=== PATIENT | male | born 1950 | race Caucasian/White ===

== ENCOUNTER → 2020-04-08 | Outpatient (CLI) | payer MEDICARE ==
--- NOTE | 2020-04-08 12:43 | KCIC ---
LUMBAR SPINE WO CONTRAST History: Reason: DDD/LUMBAR BACK PAIN AFFECTING RLE / Spl. Instructions: / History: LBP radiating into right hip in recent months. Worse last 2 weeks. Technique: Multiplanar, multi sequential MR imaging was performed of the lumbar spine. Comparison: None Findings: Mild retrolisthesis L2 on L3 and L3 on L4. Minimal grade 1 anterolisthesis L4 on L5. Normal vertebral body height. No fracture. Conus terminates at the normal location. No evidence of nerve root clumping. L1-L2: Minimal disc bulge. Mild facet arthropathy. No canal or neuroforaminal narrowing. L2-L3: Retrolisthesis. Disc bulge. Mild facet arthropathy. Subarticular recess narrowing. No canal narrowing. Mild bilateral neuroforaminal narrowing. L3-L4: Retrolisthesis. Disc bulge. Moderate facet arthropathy. No canal narrowing. Moderate bilateral neuroforaminal narrowing. L4-L5: Anterolisthesis. Disc uncovering and disc bulge. Advanced facet arthropathy. Bilateral facet joint effusions. No canal narrowing. Moderate left and mild right neuroforaminal narrowing. L5-S1: Disc bulge. Advanced facet arthropathy. No canal narrowing. Superimposed right foraminal disc protrusion. Severe right neuroforaminal narrowing with impingement of the exiting right L5 nerve root. Mild left neuroforaminal narrowing. Impression: 1. Multilevel lumbar spondylosis with advanced lower lumbar facet arthropathy. 2. Neuroforaminal narrowing most prominent right L5-S1 with impingement of the exiting right L5 nerve root. Correlate for radiculopathy. Electronically signed by: Shay Ureña DO (04/08/2020 12:40 PM) [id number]
== END ==
LOC: KCIC MRI 09:04
PROVIDERS: ATTEND Physician Assistant
DX: M47.26 Other spondylosis with radiculopathy, lumbar region (principal); M43.16 Spondylolisthesis, lumbar region; M48.061 Spinal stenosis, lumbar region without neurogenic claudication
CPT/HCPCS: 72148

== ENCOUNTER → 2020-05-13 | Outpatient (CLI) | payer MEDICARE ==
[~2020-05-13] MED LIST: DUTA0.5C PO; IOHEXOL 180 MG/ML 10 ML VIAL. ONE; LISI-334 PO; TAMS0.4C97 PO; methylPREDNISolone ACETATE 40 MG/ML VIAL. ONE; methylPREDNISolone ACETATE 80 MG/ML VIAL. ONE
--- NOTE | 2020-05-13 12:51 | PDOC1 ---
INITIAL PAIN CONSULT DATE OF SERVICE: DOS: DATE: 05/13/20 TIME: 12:45 CHIEF COMPLAINT: Chief Complaint: Low back and right lower extremity pain HISTORY OF PRESENT ILLNESS: 69-year-old male presents history of pain low back right lower extremity for about a month and a half no specific injury or accident that he is aware but is began to be more noticeable with pain rating in the low back and the right posterior gluteus posterior lateral thigh lateral anterior thigh posterior calf posterior ankle into the foot on the top of the foot and also on the sole of the foot. Patient reports no specific injury or accident that he is been aware of but reports it is worse with walking standing changing position wakes him from night about 2-3 times patient reports is not effective bowel bladder control does affect ability to walk with not use any assistive devices as such as canes or walkers to ambulate but does hold onto items and handrails when available. Patient describes pain is constant sharp in the back and radiating and shooting into the right leg with some tingling numbness and burning as well. Patient rates his disability rating 0-10 10 being the worst is an 8 with him home responsibilities recreation social activity and occupation self-care and life support activities. Patient has tried cyclobenzaprine as well as hydrocodone and had a prednisone pack which all of these helped to a moderate extent. Patient reports no loss of motor function but significant fatigability of the right leg compared to left with ambulation standing and walking better with sitting or laying down. PAST MEDICAL HISTORY: PMH: Hypertension, arthritis, hearing loss PREVIOUS SURGERIES: Past Surgical Hx: Cataract extraction 2019, hernia surgery 2004 CURRENT MEDICATIONS: Current Meds: Active Scripts Medications Dose Route/Sig Max Daily Dose Days Date Category Avodart (Dutasteride) 0.5 Mg Capsule 1 Cap PO DAILY 05/13/20 Reported Lisinopril 20 Mg Tablet 1 Tab PO DAILY 05/13/20 Reported Flomax (Tamsulosin Hcl) 0.4 Mg Cap.er.24h 0.4 Mg PO DAILY 05/13/20 Reported ALLERGIES; Allergies: Coded Allergies: No Known Drug Allergies (Unverified , 05/13/20) FAMILY HISTORY: Family Hx: Hypertension and diabetes SOCIAL HISTORY: Social Hx: Patient does not drink alcohol does not smoke or use any illegal illicit recreational drugs reports he is currently retired and lives locally in [place] REVIEW OF SYSTEMS: ROS: Positive for those items mentioned in history of present illness, all systems are reviewed, otherwise negative, is complete full and well-documented on patient's chart PHYSICAL EXAM: VS: Blood pressure is 124/92 pulse 96 respirations 18 temperature 98.9 F height is 6 feet 2 inches weight 224 pounds PE: PHYSICAL EXAMINATION: GENERAL: The patient is awake, alert, oriented, appropriate, very pleasant demeanor HEENT: Shows normocephalic, atraumatic. Extraocular movements are intact and symmetrical. Oral cavity: Mucous membranes moist and pink. Dentition is intact. NECK: Shows anterior throat supple without palpable lymphadenopathy noted. Swallow reflex symmetrical. CHEST: Shows normal on inspection. Breath sounds are clear bilaterally no rales rhonchi or wheezes auscultated. HEART: Shows S1, S2 clear. No murmurs auscultated. ABDOMEN: Soft, nontender, nondistended, obese. No palpable organomegaly is noted. No rebound or guarding demonstrated. BACK: Shows spine grossly in the midline. Normal-appearing cervical lordotic curvature. There is slightly increased thoracic kyphosis, some minor flattening of the lumbar lordotic curvature. Lumbar paraspinous muscles show symmetrical on inspection, on palpation shows some moderate tenderness diffusely throughout the upper, middle and lower distribution of the paraspinous muscles bilaterally without specific trigger points, without radiation of pain. The patient has good rotational motion of the lumbar spine, both laterally as well as extension and flexion without significant difficulty. No tenderness over the spinous processes, sacrum or sacroiliac regions. EXTREMITIES: Lower extremities show deep tendon reflexes 2 in the patellar and tendo calcaneus tendons. Motor exam is 5 on a scale of 5 with right dorsiflexion, extension, quadriceps and hamstring flexion and 5/5 on the left. Peripheral pulses are 1+ posterior tibial. No peripheral edema is noted bilaterally. Lower extremities are warm and dry to touch, equal in color and appearance. Straight leg raise noted to be negative bilaterally. Gaenslen's and Jordin's maneuvers are negative bilaterally as well. The patient is able to stand, stand on his toes out significant difficulty or loss of balance walks with a slight favoring gait does appear to favor the right lower extremity mildly but not using any assistive device such as canes or walkers to ambulate. SKIN: Shows warm and dry, good turgor. No edema. No sores, rashes or bruising throughout. IMPRESSION: Impression: 69-year-old male with approximate 1-1/2-month history of low back and right lower extremity pain and radicular fashion. MRI scan lumbar spine showing multilevel lumbar spondylosis with advanced lower lumbar facet arthropathy neuroforaminal narrowing most prominent at right L5-S1 with impingement of the exiting right L5 nerve root Hearing loss Arthritis Hypertension Plan: Options were discussed with the patient including conservative medical management physical therapies interventional techniques. Patient would like to pursue interventional techniques. We discussed a lumbar epidural steroid injection using description as well as anatomical models to describe the procedure. Risks were discussed including but not limited to: Bleeding, infection, possibility of epidural hematoma and subsequent neurological compromise, dural puncture, headaches, spinal cord and/or nerve damage, side effects of steroid medication, and poor results regarding pain control. Patient understands wished to proceed. Patient will return to clinic in approximate 2 weeks for follow-up was counseled as return appointment activity level and side effects to be aware of. Procedure is lumbar epidural steroid injection under local anesthetic using sterile prep and drape at the L5-S1 level using C-arm fluoroscopic guidance in both AP and lateral views medications injected is 120 mg Depo-Medrol + 10 mL preservative-free normal saline and 2 mL contrast- condition at discharge is stable patient tolerated procedure well had no complications. BECCA SANDOVAL MD May 13, 2020 12:51
== END | disposition home or self-care (01) ==
LOC: PNCL 08:05
PROVIDERS: ATTEND Anesthesiology
DX: M54.5 Low back pain (principal); M47.816 Spondylosis without myelopathy or radiculopathy, lumbar region; M79.604 Pain in right leg; I10 Essential (primary) hypertension; M19.90 Unspecified osteoarthritis, unspecified site; Z79.899 Other long term (current) drug therapy; Z98.890 Other specified postprocedural states; Z82.49 Family history of ischemic heart disease and other diseases of the circulatory system; Z83.3 Family history of diabetes mellitus
CPT/HCPCS: 62323; J1030; J1040; Q9965

== ENCOUNTER → 2020-05-27 | Outpatient (CLI) | payer MEDICARE ==
--- NOTE | 2020-05-27 08:50 | PDOC ---
Progress Note - Pain Clinic Date of Service: DOS: DATE: 05/27/20 TIME: 08:48 Diagnosis: Dx: Lumbar radiculopathy with lumbar degenerative disc disease and lumbar herniated disc History or Present Illness: HPI: 69-year-old male returns follow-up status post lumbar epidural steroid injection x1. Patient reports about 40% improvement in low back and right lower extremity pain. Patient reports he been increasing his activity to greater distance walking doing household activities as well as travel with greater ease and comfo rt and sleeping better patient reports it generally does not awaken her from sleep at this time. Patient reports the pain is in the low back right lower extremity posterior gluteus posterior thigh posterior calf mostly in the back patient reports is a 6 on a scale of 10 is worse over the past week for an average 3 days least is a 4 today. Patient reports that sharp and tingling some burning pain and radiating shooting pain in the right leg with activity. Patient reports no new motor or sensory deficits no new bowel or bladder incontinence or other complaints. Physical Exam: VS: Blood pressure is 152/103 pulse 73 respirations 17 temperature 99.1 F height is 6 feet 2 inches weight is 235 pounds PE: PHYSICAL EXAMINATION: GENERAL: The patient is awake, alert, oriented, appropriate, very pleasant demeanor HEENT: Shows normocephalic, atraumatic. Extraocular movements are intact and symmetrical. Oral cavity: Mucous membranes moist and pink. Dentition is intact. NECK: Shows anterior throat supple without palpable lymphadenopathy noted. Swallow reflex symmetrical. CHEST: Shows normal on inspection. Breath sounds are clear bilaterally. HEART: Shows S1, S2 clear. No murmurs auscultated. ABDOMEN: Soft, nontender, nondistended, obese. No palpable organomegaly is noted. No rebound or guarding demonstrated. BACK: Shows spine grossly in the midline. Normal-appearing cervical lordotic curvature. There is slightly increased thoracic kyphosis, some minor flattening of the lumbar lordotic curvature. Lumbar paraspinous muscles show symmetrical on inspection, on palpation shows some moderate tenderness diffusely throughout the upper, middle and lower distribution of the paraspinous muscles without specific trigger points, without radiation of pain. The patient has good rotational motion of the lumbar spine, both laterally as well as extension and flexion without significant difficulty. No tenderness over the spinous processes, sacrum or sacroiliac regions. EXTREMITIES: Lower extremities show deep tendon reflexes 2+ in the patellar and tendo calcaneus tendons. Motor exam is 5 on a scale of 5 with right dorsiflexion, extension, quadriceps and hamstring flexion and 5/5 on the left. Peripheral pulses are 1+ posterior tibial. No peripheral edema is noted bilaterally. Lower extremities are warm and dry to touch, equal in color and appearance. SKIN: Shows warm and dry, good turgor. No edema. No sores, rashes or bruising throughout. Procedure: Procedure: Options were discussed with the patient. Patient chart reviewed his current medication regimen updated current review of systems updated today as well. We will proceed with a second in this series lumbar epidural steroid injection today with fluoroscopic guidance. Risks were discussed including but not limited to: Bleeding, infection, possibility of epidural hematoma and subsequent neurological compromise, dural puncture, headaches, spinal cord and/or nerve damage, side effects of steroid medication, and poor results regarding pain control. Patient understands wished to proceed. Patient will return to the clinic in approximately 2 weeks for follow-up was counseled as to return appointment activity level and side effects to be aware of. Medication Injected: Med Injected: Procedure is lumbar epidural steroid injection under local anesthetic using sterile prep and drape at the L5-S1 level using C-arm fluoroscopic guidance in both AP and lateral views medications injected is 120 mg Depo-Medrol + 10 mL preservative-free normal saline and 2 mL contrast- condition at discharge is s table patient tolerated procedure well had no complications. Condition at Discharge: Condition at Discharge: Condition at discharge stable, patient tolerated procedure well and had no complications. BECCA SANDOVAL MD May 27, 2020 08:50
== END | disposition home or self-care (01) ==
LOC: PNCL 07:55
PROVIDERS: ATTEND Anesthesiology
DX: M51.16 Intervertebral disc disorders with radiculopathy, lumbar region (principal); Z79.899 Other long term (current) drug therapy
CPT/HCPCS: 62323; J1030; J1040; Q9965

== ENCOUNTER → 2020-06-10 | Outpatient (CLI) | payer MEDICARE ==
--- NOTE | 2020-06-10 09:16 | PDOC ---
Progress Note - Pain Clinic Date of Service: DOS: DATE: 06/10/20 TIME: 09:11 Diagnosis: Dx: Lumbar radiculopathy with lumbar degenerative disease and lumbar herniated disc History or Present Illness: HPI: 69-year-old male returns to follow-up status post lumbar epidural steroid action x2. Patient reports about 50% overall improvement but more significant after the first injection in the second stage pain reduction in the low back and right lower extremity. Patient reports still some pain and tingling in the right leg especially the top of the right foot which has some numbness and tingling as well patient ports he can be burning in quality as well mostly aching in the low back rating the right lower extremity posterior gluteus posterior thigh posterior calf and anterior medial top of the foot. Patient reports no new motor or sensory deficits no new bowel or bladder incontinence or other complaints. Patient reports pain is 5 on a scale of 10 is worse over the past week 4 on average and affords least is a 4 today. Patient reports worse pain with increased activity but better with sitting or lying down does not awaken her from sleep at night. Physical Exam: VS: Blood pressure is 146/79 pulse 77 respirations 18 temperature 99.3 F height is 6 feet 2 inches weight 244 pounds PE: PHYSICAL EXAMINATION: GENERAL: The patient is awake, alert, oriented, appropriate, very pleasant demeanor HEENT: Shows normocephalic, atraumatic. Extraocular movements are intact and symmetrical. Oral cavity: Mucous membranes moist and pink. NECK: Shows anterior throat supple without palpable lymphadenopathy noted. S wallow reflex symmetrical. CHEST: Shows normal on inspection. Breath sounds are clear bilaterally. HEART: Shows S1, S2 clear. No murmurs auscultated. ABDOMEN: Soft, nontender, nondistended, obese. No palpable organomegaly is noted. BACK: Shows spine grossly in the midline. Normal-appearing cervical lordotic curvature. There is increased thoracic kyphosis, some flattening of the lumbar lordotic curvature. Lumbar paraspinous muscles show symmetrical on inspection, on palpation shows some moderate tenderness diffusely throughout the upper, middle and lower distribution of the paraspinous muscles without specific trigger points, without radiation of pain. The patient has good rotational motion of the lumbar spine, both laterally as well as extension and flexion without significant difficulty. No tenderness over the spinous processes, sacrum or sacroiliac regions. EXTREMITIES: Lower extremities show deep tendon reflexes 2+ in the patellar and tendo calcaneus tendons. Motor exam is 5 on a scale of 5 with right dorsiflexion, extension, quadriceps and hamstring flexion and 5/5 on the left. Peripheral pulses are 1+ posterior tibial. No peripheral edema is noted bilaterally. Lower extremities are warm and dry to touch, equal in color and appearance. SKIN: Shows warm and dry, good turgor. No edema. No sores, rashes or bruising throughout. Procedure: Procedure: Options were discussed with the patient. Patient chart was reviewed his current medication regimen updated current review of systems updated today as well. We will proceed with a third in the series lumbar epidural steroid injection today with fluoroscopic guidance. Risks were discussed including but not limited to: Bleeding, infection, possibility of epidural hematoma and subsequent neurological compromise, dural puncture, headaches, spinal cord and/or nerve damage, side effects of steroid medication, and poor results regarding pain control. Patient understands wished to proceed. Patient will return to clinic in approximate 2 weeks for follow-up, was counseled as return appointment active level and side effects to be aware of. Medication Injected: Med Injected: Procedure is lumbar epidural steroid injection under local anesthetic using sterile prep and drape at the L5-S1 level using C-arm fluoroscopic guidance in both AP and lateral views medications injected is 120 mg Depo-Medrol + 10 mL preservative-free normal saline and 2 mL contrast- condition at discharge is stable patient tolerated procedure well had no complications. Condition at Discharge: Condition at Discharge: Condition at discharge stable, patient tolerated the procedure well and had no complications. BECCA SANDOVAL MD Jun 10, 2020 09:16
== END | disposition home or self-care (01) ==
LOC: PNCL 08:26
PROVIDERS: ATTEND Anesthesiology
DX: M51.16 Intervertebral disc disorders with radiculopathy, lumbar region (principal); Z79.899 Other long term (current) drug therapy; Z98.890 Other specified postprocedural states
CPT/HCPCS: 62323; J1030; J1040; Q9965

== ENCOUNTER → 2021-05-06 | Outpatient (CLI) | payer MEDICARE ==
[~2021-05-06] MED LIST changes: -IOHEXOL 180 MG/ML 10 ML VIAL. ONE; -LISI-334 PO; +LISI20TA18 PO; -methylPREDNISolone ACETATE 40 MG/ML VIAL. ONE; -methylPREDNISolone ACETATE 80 MG/ML VIAL. ONE
[2021-05-06 12:44] LABS: BASO # 0.1 x10^3/uL (0.0-0.2); BASO % 1 % (0-3); EOS # 0.2 x10^3/uL (0.0-0.7); EOS % 2 % (0-3); HEMATOCRIT 46.4 % (39.0-53.0); HEMOGLOBIN 15.7 g/dL (13.0-17.5); LYMPH # 1.6 x10^3/uL (1.0-4.8); LYMPH % 19 % (24-48); MEAN CORPUSCULAR HEMOGLOBIN 32 pg (25-35); MEAN CORPUSCULAR HGB CONC 34 g/dL (31-37); MEAN CORPUSCULAR VOLUME 93 fL (79-100); MONO # 0.9 x10^3/uL (0.0-1.1); MONO % 11 % (0-9); NEUT # 5.7 x10^3/uL (1.8-7.7); NEUT % 67 % (31-73); PLATELET COUNT 266 x10^3/uL (140-400); RED CELL DISTRIBUTION WIDTH 13.4 % (11.5-14.5); WHITE BLOOD COUNT 8.5 x10^3/uL (4.0-11.0)
[2021-05-06 12:59] LABS: ALBUMIN 3.6 g/dL (3.4-5.0); ALBUMIN/GLOBULIN RATIO 1.2 (1.0-1.7); CALCIUM 8.6 mg/dL (8.5-10.1); CREATININE 0.9 mg/dL (0.7-1.3); GFR 83.9; POTASSIUM 4.2 mmol/L (3.5-5.1); TOTAL BILIRUBIN 0.6 mg/dL (0.2-1.0); TOTAL PROTEIN 6.7 g/dL (6.4-8.2)
--- NOTE | 2021-05-06 13:14 | EKG ---
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
== END ==
LOC: SURGPAT 12:08
PROVIDERS: ATTEND Neurological Surgery
DX: Z01.818 Encounter for other preprocedural examination (principal); I10 Essential (primary) hypertension; M51.17 Intervertebral disc disorders with radiculopathy, lumbosacral region
CPT/HCPCS: 36415; 80053; 85025; 87641; 93005

== ENCOUNTER 2021-05-11 10:09 | Day surgery (SDC) | payer MEDICARE ==
[2021-05-06 12:36] VITALS: BP 166/90
[~2021-05-11] VITALS: Ht 188 cm; Wt 115.0 kg
[~2021-05-11 10:09] MED LIST changes: +BUPIVACAINE-EPI 0.5% 30 ML VIAL KIT. ONE; +GELATIN SPONGE SIZE 100. ONE; +HYDROmorphone 2 MG/ML VIAL IVP PRN; +IV RINGERS,LACTATED 1000ML 1,000 ML IV SCH; +KETOROLAC 60 MG/2 ML VIAL. ONE; +LIDOCAINE 2% PF 5 ML VIAL. ONE; +MORPHINE SULFATE 2 MG/ML INJ. IVP PRN; +PHENYLEPHRINE 10 MG/ML VIAL. ONE; +PROCHLORPERAZINE 10 MG/2 ML VIAL. IVP PRN; +PROPOFOL 10 MG/ML (20ML) VIAL. IV ONE; +PROPOFOL 50 ML IV ONE; +REMIFENTANIL 1 MG VIAL. IV ONE; +ROCURONIUM 50 MG/5 ML VIAL. ONE; +SUCCINYLCHOLINE 200 MG/10 ML VIAL. ONE; +THROMBIN TOPICAL 20,000 UNIT SPRAY.SYRN KIT TP ONE; +ceFAZolin SODIUM 1 GM in IV NORMAL SALINE 1000ML BAG 1,000 ML IRR ONE; +fentaNYL PF VIAL 100 MCG/2 ML VIAL IVP PRN; +fentaNYL PF VIAL 100 MCG/2 ML VIAL ONE
[2021-05-11 10:44] VITALS: BP 149/89
[2021-05-11] MEDS ORDERED: PHENYLEPHRINE 10 MG/ML VIAL. ONE (10:54)
[2021-05-11] MEDS ORDERED: DEXAMETHASONE SOD PHOS 4 MG/ML VIAL ONE (11:12)
[2021-05-11] MEDS ORDERED: ONDANSETRON PF 4 MG/2 ML VIAL. ONE (11:12)
[2021-05-11] MEDS ORDERED: ePHEDrine PF IN SALINE 50 MG/10 ML SYRINGE. IV ONE (11:12)
[2021-05-11] MEDS ORDERED: NEOSTIGMINE METHYLSULFATE 5 MG/5 ML SYRINGE. ONE (11:13)
[2021-05-11] MEDS ORDERED: GLYCOPYRROLATE 1 MG/5 ML VIAL. ONE (11:19)
--- NOTE | 2021-05-11 11:30 | PREOP HP ---
DATE OF SERVICE: 05/11/2021 HISTORY OF PRESENT ILLNESS: The patient is a pleasant 70-year-old man who is having difficulties with back and right hip and leg pain. He had epidural steroid injections, which he said helped significantly, especially after the first injection, but over the last few weeks to months, he has been worsening again. He has low back pain, right hip pain and numbness. He has pain in his right leg and foot. He rates his pain a 4/10. Standing and walking increases pain. Sitting helps. He has had epidural steroid injections as well as chiropractic treatment. The problem has been present for more than one year. CURRENT MEDICATIONS: Tamsulosin, lisinopril, cyclobenzaprine, hydrocodone, prednisone, Advil. PAST MEDICAL HISTORY: Arthritis, shingles. PAST SURGICAL HISTORY: Hernia repair 2002, cataract surgery in 2019. FAMILY HISTORY: Hypertension. SOCIAL HISTORY: Nonsmoker . Denies tobacco use, does not drink alcohol. Drinks coffee daily. ALLERGIES: ASPIRIN. REVIEW OF SYSTEMS: A 12-point review of systems was performed and is noncontributory except that mentioned above. PHYSICAL EXAMINATION: GENERAL: Alert, pleasant, in no acute distress. HEENT: Head is normocephalic, atraumatic. SKIN: Warm and dry. MUSCULOSKELETAL: Lumbar paraspinal muscle bulk is normal, restricted range of motion of the lumbar spine, [id number] tenderness of the lower lumbar spine with palpation, normal range of motion of the lower extremities bilaterally. EXTREMITIES: No clubbing, cyanosis or edema. NEUROLOGIC: Alert and oriented x 3. Strength is 5/5 in the lower extremities bilaterally. Sensory is intact to light touch in the lower extremities. Reflexes were present and symmetric in the lower extremities bilaterally, negative straight leg raising, ambulates with a crutch. IMAGING: I reviewed a lumbar MRI scan. There is foraminal narrowing at L5-S1 on the right. ASSESSMENT AND PLAN: I believe his radicular symptoms are related to the severe right foraminal narrowing from a large right foraminal disk protrusion that compresses the L5 nerve root as it exits the foramen. The problem has been present for more than one year. My recommendation since he has failed to improve significantly with conservative measures, is that he have a lumbar transforaminal micro surgery at L5-S1 on the right. I explained the surgery in detail. I spoke about the risk of the operation including nerve root injury and infection. I explained that very often with a foraminal disk extrusions it takes more time to recover from severe pain. I outlined the risk of anesthesia. He understands. We reviewed the expected postoperative course. He understands. He would like to go ahead. KENDRA/SARANYA DR: Laurel TID: [id number]
[2021-05-11] MEDS ORDERED: PROPOFOL 50 ML IV ONE (11:41)
[2021-05-11] MEDS ORDERED: REMIFENTANIL 1 MG VIAL. IV ONE (11:51)
[2021-05-11] MEDS ORDERED: 0.9 % SODIUM CHLORIDE 20 ML VIAL. IJ ONE (11:51)
[2021-05-11] MEDS ORDERED: HYDROmorphone 2 MG/ML VIAL ONE (12:13)
[2021-05-11] MEDS ORDERED: SEVOFLURANE > 120 MINUTES. IH ONE (13:02)
[2021-05-11] MEDS ORDERED: METH-562 PO (13:37)
[2021-05-11] MEDS ORDERED: HYDR-2761 PO (13:37)
[2021-05-11] MEDS ORDERED: DOCU-109 PO (13:37)
--- NOTE | 2021-05-11 13:39 | DISCH ---
DISCHARGE INSTRUCTIONS Condition on Discharge Condition on Discharge: Stable Activity After Discharge Activity Instructions for Disc: Activity as tolerated, Avoid exertion Other activity instructions: no driving for a week Bathing Instructions: Shower-keep dressing dry, No Tub Bath until see Lifting Instructions after Dis: No heavy lifting, No pulling or pushing, Do not lift >10 pounds Diet after Discharge Additional Diet Restrictions: resume home diet Wound Incision Care Wound/Incision Care: Ice to area for comfort Other wound/incision instructi: may remove dressing in 48 hours if dry then may shower, no soaking Contacting the after DC Call your doctor for: Concerns you may have Follow-Up Follow up with: Dr. Palomino's nurse in 2 weeks [phone] QUANG PALOMINO MD May 11, 2021 13:39
[2021-05-11] MEDS ORDERED: fentaNYL PF VIAL 100 MCG/2 ML VIAL ONE (15:35)
[2021-05-11] MEDS: fentaNYL PF VIAL 100 MCG/2 ML VIAL IVP PRN ×2 (15:37→15:51)
[2021-05-11 16:00] VITALS: BP 123/72
[2021-05-11] MEDS ORDERED: HYDROcodone/APAP 5/325MG 1 TAB TABLET PO ONE (16:00)
--- NOTE | 2021-05-11 17:08 | OP ---
DATE OF SURGERY: 05/11/2021 PREOPERATIVE DIAGNOSIS: Foraminal disc herniation, L5-S1, right with severe right lumbar radiculopathy. POSTOPERATIVE DIAGNOSIS: Foraminal disc herniation, L5-S1, right with synovial cyst, intraforaminal, L5-S1, right with compression of the right L5 root and severe radiculopathy. OPERATION PERFORMED: Transfacet exposure with removal of herniated lumbar disc and synovial cyst, L5-S1, right. The operation was done with EMG monitoring, SSEP monitoring, fluoroscopy, microscopic dissection. SURGEON: Alex Jean M.D. OPERATIVE INDICATIONS: The patient is a pleasant 70-year-old man who developed intractable back and right leg pain, failing conservative measures. On imaging studies he had the above-mentioned findings and recommended lumbar microsurgery. He understood the surgery and risks and wished to go ahead. DESCRIPTION OF PROCEDURE: Following general endotracheal anesthesia, the patient was positioned prone on the Aguila table. His lumbar region prepped and draped in the standard fashion. FRANCISCO hose and AV impulse boots were applied for DVT prophylaxis. The microscope was draped, fluoroscopy was draped and brought into the field. Monitoring was established. Ancef 2 grams was given less than 1 hour prior to initiation of the surgery. Using fluoroscopic guidance, an incision was made extending above and below the L5-S1 interspace. I dissected down through skin and subcutaneous tissue and reflected the paraspinal muscles and after working down through considerable amount of adipose tissue, I was able to place a [place] microdisk retractor. I brought in the microscope at this point and the remainder of the surgery was done with the microscope using microscopic technique. I drilled down a very generous hemilaminotomy. I then drilled and thinned the facet laterally. I then trimmed and exposed the ligament and then working laterally, I opened the foramen. I then peeled away the thickened ligamentum flavum. I did perform partial foraminotomy and then I followed out into the foramen. There was a synovial cyst, which was immediately apparent in the foramen compressing down the L5 root and I worked around this and a little farther laterally. There was also a bulging disc, which was compressing the L5 root superiorly against the pedicle above. I incised the annulus with a #11 blade and I removed several subligamentous disc fragments and as I worked, the nerve became freer. I trimmed away, I explored carefully and I fully removed all the surrounding tissue from the synovial cyst and trimmed this away as well and the nerve moved posteriorly, properly and was easily visible. As I worked, the nerve became less and less decompressed. It felt less and less compressed and there was a time I felt that I had an excellent decompression of the entire region. I irrigated copiously. Hemostasis was excellent throughout. I assured myself that the root was free. I confirmed the foramen was wide open. I irrigated and removed the retractor, obtained hemostasis in the muscle and I closed the wound in layers with absorbable suture and the skin was closed with skin jonel. I felt the surgery went very well. GUILLERMINA/NOAM/ASHLEY DR: Lindy TID: [id number] MTDKris
--- NOTE | 2021-05-16 17:06 | PATHOLOGY ---
[facility] Accession Number: [id number] . 01 Material submitted: . PART A: vertebral column - LUMBAR DISC AND DECOMPRESSION. Modifiers: LUMBAR PART B: vertebral column - SYNOVIAL CYST. Modifiers: SYNOVIUM . 01 Clinical history: . LUMBAR FORAMINAL DISC HERNIATION LUMBAR MICRODISCECTOMY FOR LATERAL L5-S1 . 02 Diagnosis: A. Segments of fibrocartilaginous tissue and bone, lumbar disc and decompression: - Degenerative changes of fibrocartilaginous tissue. . B. Segments of fibrous and synovial tissue, "synovial cyst": - Synovial cyst with focal reactive fibrosis and calcification. . (JPM:myra; 05/16/2021) [facility] 05/16/2021 1410 Local . 02 Comment: There is no evidence of an acute inflammatory process or malignancy. (JPM:[facility]; 05/16/2021) . 02 Electronically signed: . Niels Stokes MD, Pathologist NPI- [id number] . 01 Gross description: . A. Received in formalin labeled "Cherry, Remy, lumbar disc and decompression" is a 5.8 x 3.5 x 1.2 cm aggregate of osullivan-brown friable soft tissue fragments and osullivan-white bone. Representative Personal Service tissue is submitted in cassette A1 following decalcification. . B. Received in formalin labeled "Cherry, Remy, synovial cyst" is a 1.0 x 0.7 x 0.3 cm aggregate of osullivan-white rubbery membranous soft tissue fragments. The specimen is filtered and submitted in B1. ([facility]; 05/15/2021) [facility] 05/15/2021 0933 Local . 02 Pathologist provided ICD-10: M51.36, M71.38 . 02 CPT . 407690, [id number], [id number] Specimen Comment: A courtesy copy of this report has been sent to [phone], [phone] Specimen Comment: [id number] Specimen Comment: Report sent to / DR SLATER Performed at: [facility] [address], [place] [id number] MD Danyel Powell MD Phone: [phone] [facility]formed at: [facility] [address], [place] [id number] MD Niels Stokes MD Phone: [phone]
== END 2021-05-11 16:45 | disposition home or self-care (01) ==
LOC: SURG 10:09
PROVIDERS: ATTEND Neurological Surgery
DX: M51.16 Intervertebral disc disorders with radiculopathy, lumbar region (principal); M19.90 Unspecified osteoarthritis, unspecified site; I10 Essential (primary) hypertension; E66.9 Obesity, unspecified; Z79.899 Other long term (current) drug therapy; Z98.890 Other specified postprocedural states
CPT/HCPCS: 63056; 88304; 88311; 97116; 97162; 97530; A4364; A4556; A4930; A6254; A6258; J0330; J0690; J1100; J1170; J1885; J2370; J2405; J2704; J2710; J3010; J3490; J7030; 76000; A4222

== ENCOUNTER → 2021-10-17 | Outpatient (CLI) | payer MEDICARE ==
[~2021-10-17] MED LIST changes: -BUPIVACAINE-EPI 0.5% 30 ML VIAL KIT. ONE; +DOCU-109 PO; +GADOTERATE 7.5 MMOL/15ML VIAL. IVP ONE; -GELATIN SPONGE SIZE 100. ONE; +HYDR-2761 PO; -HYDROmorphone 2 MG/ML VIAL IVP PRN; -IV RINGERS,LACTATED 1000ML 1,000 ML IV SCH; -KETOROLAC 60 MG/2 ML VIAL. ONE; -LIDOCAINE 2% PF 5 ML VIAL. ONE; +METH-562 PO; -MORPHINE SULFATE 2 MG/ML INJ. IVP PRN; -PHENYLEPHRINE 10 MG/ML VIAL. ONE; -PROCHLORPERAZINE 10 MG/2 ML VIAL. IVP PRN; -PROPOFOL 10 MG/ML (20ML) VIAL. IV ONE; -PROPOFOL 50 ML IV ONE; -REMIFENTANIL 1 MG VIAL. IV ONE; -ROCURONIUM 50 MG/5 ML VIAL. ONE; -SUCCINYLCHOLINE 200 MG/10 ML VIAL. ONE; -THROMBIN TOPICAL 20,000 UNIT SPRAY.SYRN KIT TP ONE; -ceFAZolin SODIUM 1 GM in IV NORMAL SALINE 1000ML BAG 1,000 ML IRR ONE; -fentaNYL PF VIAL 100 MCG/2 ML VIAL IVP PRN; -fentaNYL PF VIAL 100 MCG/2 ML VIAL ONE
--- NOTE | 2021-10-17 11:22 | KCIC ---
MRI LUMBAR SPINE WITHOUT AND WITH IV CONTRAST History: Reason: LUMBAR SPONDYLOLISTHESIS/BACK PAIN / Spl. Instructions: / History: Back pain when s tabding after lumbar surgey 04/2021. 22cc Marco Antonioan. Technique: Multiplanar, multi sequential MR imaging was performed of the lumbar spine without and wit h intravenous contrast. Comparison: April 08, 2020 Findings: Mild retrolisthesis L2 on L3 and L3 on L4. Normal vertebral body height. No acute fracture. Increased degenerative endplate edema left L3-L4 and right L5-S1. Conus terminates at the normal location. No evidence of nerve root clumping. No pathologic enhancemen t. L1-L2: Small disc bulge. No canal or neuroforaminal narrowing. L2-L3: Retrolisthesis. Small disc bulge. No canal narrowing. Mild bilateral neuroforaminal narrowing . L3-L4: Retrolisthesis. Minimal disc bulge. No canal narrowing. Mild facet arthropathy. Increased lef t foraminal disc protrusion. Increased severe left neuroforaminal narrowing. Abutment of the exiting left L3 nerve root. Mild right neuroforaminal narrowing. L4-L5: Small disc bulge. Moderate facet arthropathy. No canal narrowing. Moderate left and mild righ t neuroforaminal narrowing, unchanged. Abutment of the exiting left L4 nerve root. L5-S1: Prior right hemilaminectomy. Enhancement within the laminectomy defect on the right posterior epidural space extending towards the right neuroforamen. Minimal disc bulge. Moderate facet arthropat hy. No canal narrowing. Severe right neuroforaminal narrowing with abutment of the exiting right L5 n erve root, unchanged. Mild left neuroforaminal narrowing. Impression: 1. Multilevel lumbar spondylosis most prominent L3-L4 and L5-S1. 2. Increased L3-L4 left foraminal disc protrusion contributing to severe neuroforaminal narrowing wi th abutment of the exiting L3 nerve root. Correlate for radiculopathy. 3. Postoperative changes L5-S1 with posterior epidural enhancement extending towards the right neuro foramen, may indicate scarring. 4. Severe right L5-S1 neuroforaminal narrowing, unchanged. 5. Increased degenerative endplate edema L3-L4 and L5-S1. Electronically signed by: Shay Ureña DO (10/17/2021 11:20 AM) [id number]
== END ==
LOC: KCIC MRI 09:07
PROVIDERS: ATTEND Neurological Surgery
DX: M47.817 Spondylosis without myelopathy or radiculopathy, lumbosacral region (principal); M51.27 Other intervertebral disc displacement, lumbosacral region; M48.07 Spinal stenosis, lumbosacral region; M43.16 Spondylolisthesis, lumbar region
CPT/HCPCS: 72158; 82565; A9575